=== PATIENT | male | born 1965 | race Caucasian/White ===

== ENCOUNTER 2022-04-15 01:16 | Inpatient (IN) ==
[2022-04-15 10:46] LABS: Basophils % 0.4 %; Eosinophils # 0.2 K/mcL (0.0-0.6); Eosinophils % 2.2 %; Hematocrit 38.4 % (37.5-50.1); Hemoglobin 12.8 g/dL (12.9-16.9); Immature Granulocytes % 0.5 % (0-4); Lymphocytes # 1.9 K/mcL (0.6-4.6); Lymphocytes % 21.8 %; Mean Corpuscular HGB Conc 33.3 g/dL (31.6-35.5); Mean Corpuscular Hemoglobin 31.7 pg (28.0-33.3); Mean Platelet Volume 9.6 fL (9.4-12.4); Monocytes # 1.1 K/mcL (0.0-1.3); Monocytes % 12.9 %; Neutrophils # 5.3 K/mcL (1.6-8.9); Platelet Count 137 K/mcL (140-400); Red Blood Count 4.04 M/mcL (4.19-5.50); Red Cell Distribution Width 13.9 % (11.5-14.5); Segmented Neutrophils % 62.2 %; White Blood Count 8.5 K/mcL (4.3-11.1)
[2022-04-15] MEDS ORDERED: Dextrose Gel 15 GM/37.5 ML TUBE PO PRN ×2 (11:03)
[2022-04-15] MEDS ORDERED: *HR* Dextrose 50 % in Water (Syg) 50 ML SYRINGE IVP PRN (11:03)
[2022-04-15] MEDS ORDERED: D5% in Water 1,000 ML IVC PRN (11:03)
[2022-04-15] MEDS ORDERED: Acetaminophen 325 MG TABLET PO PRN (11:05)
[2022-04-15 11:06] LABS: Albumin 3.4 g/dL (3.5-5.7); Bilirubin,Total 0.4 mg/dL (0.3-1.0); Calcium 7.3 mg/dL (8.6-10.3)
[2022-04-15 11:28] LABS: Albumin/Globulin Ratio 1.2 (1.1-2.2); Globulin 2.8 g/dL (2.4-3.5); Total Protein 6.2 g/dL (6.4-8.9)
[2022-04-15 11:52] LABS: INR 1.1; Prothrombin Time 12.1 Seconds (9.4-12.1)
[2022-04-15 11:54] LABS: Activated Partial Thrombo Time 30.7 Seconds (26.0-36.0)
[2022-04-15 11:57] LABS: Albumin 3.4 g/dL (3.5-5.7); Albumin/Globulin Ratio 1.3 (1.1-2.2); Bilirubin,Direct 0.1 mg/dL (0.0-0.2); Bilirubin,Indirect 0.3 mg/dL (0.0-1.0); Bilirubin,Total 0.4 mg/dL (0.3-1.0); Globulin 2.6 g/dL (2.4-3.5)
[2022-04-15] MEDS ORDERED: Ampicillin 2 MG in 0.9 % Sodium Chloride Mini Bag 100 ML IVPB SCH ×2 (12:00→14:00)
[2022-04-15] MEDS: Insulin LISPRO 300 UNITS/3 ML VIAL SUBQ SCH ×3 (12:10→20:47)
[2022-04-15] MEDS: cefTRIAXone 2,000 MG in 0.9 % Sodium Chloride 20 ML IVP SCH ×2 (12:11→20:39)
[2022-04-15] MEDS ORDERED: Ampicillin 2,000 MG in 0.9 % Sodium Chloride Mini Bag 100 ML IVPB SCH (14:00)
[2022-04-15] MEDS ORDERED: metOLazone 5 MG TABLET PO PRN (17:53)
[2022-04-15] MEDS ORDERED: Lactulose Oral Soln 20 GM/30 ML UDC PO PRN (18:05)
[2022-04-15] MEDS: Torsemide 20 MG TABLET PO SCH (18:17)
[2022-04-15] MEDS: Ampicillin 2,000 MG in 0.9 % Sodium Chloride Mini Bag 100 ML IVPB SCH (20:30)
[2022-04-15] MEDS: FLUoxetine 20 MG CAPSULE PO SCH (20:42)
[2022-04-15] MEDS: *HR* Heparin 5,000 UNIT/ML VIAL SQ SCH (20:47)
[2022-04-16 02:19] LABS: Hepatitis B Surface Antibody 151.19 mIU/mL
[2022-04-16 02:30] LABS: Hepatitis B Surface Antigen Nonreactive (Nonreactive)
[2022-04-16 03:09] LABS: Bilirubin,Urine Negative (Negative); Blood,Urine Trace (Negative); Clarity,Urine Clear (Clear); Color,Urine Yellow (Yellow); Glucose,Urine (UA) 300 mg/dL (Normal); Ketones,Urine Negative (Negative); Leukocyte Esterase,Urine Moderate (Negative); Mucus,Urine Few per lpf (None-Few); Nitrite,Urine Negative (Negative); Protein,Urine >=300 mg/dL (Neg-Trace); RBC,Urine 0-3 per hpf (0-3); Specific Gravity,Urine 1.024 (1.010-1.025); Squamous Epithelial Cell,Urine Moderate per hpf (None-Few); Urobilinogen,Urine Normal (Normal); WBC,Urine 30-50 per hpf (0-3)
[2022-04-16 04:22] LABS: Basophils % 0.5 %; Eosinophils # 0.3 K/mcL (0.0-0.6); Eosinophils % 3.7 %; Hematocrit 36.7 % (37.5-50.1); Hemoglobin 12.4 g/dL (12.9-16.9); Immature Granulocytes % 0.3 % (0-4); Lymphocytes % 26.5 %; Mean Corpuscular HGB Conc 33.8 g/dL (31.6-35.5); Mean Corpuscular Hemoglobin 31.8 pg (28.0-33.3); Mean Corpuscular Volume 94.1 fL (83.0-100.0); Mean Platelet Volume 9.8 fL (9.4-12.4); Monocytes # 0.9 K/mcL (0.0-1.3); Monocytes % 11.8 %; Neutrophils # 4.2 K/mcL (1.6-8.9); Platelet Count 125 K/mcL (140-400); Red Cell Distribution Width 13.6 % (11.5-14.5); Segmented Neutrophils % 57.2 %; White Blood Count 7.4 K/mcL (4.3-11.1)
[2022-04-16 04:31] LABS: Calcium 7.1 mg/dL (8.6-10.3)
[2022-04-16 04:59] LABS: Estimated Average Glucose 206 mg/dl; Hemoglobin A1C 8.8 %
[2022-04-16] MEDS: cefTRIAXone 2,000 MG in 0.9 % Sodium Chloride 20 ML IVP SCH ×2 (05:43→22:15)
[2022-04-16] MEDS: *HR* Heparin 5,000 UNIT/ML VIAL SQ SCH ×3 (05:45→22:16)
[2022-04-16] MEDS: Ampicillin 2,000 MG in 0.9 % Sodium Chloride Mini Bag 100 ML IVPB SCH ×2 (05:45→22:15)
[2022-04-16] MEDS: Aspirin 325 MG TABLET PO SCH (08:45)
[2022-04-16] MEDS: Torsemide 20 MG TABLET PO SCH (08:45)
[2022-04-16] MEDS: carvediloL 6.25 MG TABLET PO SCH ×2 (08:46→18:54)
[2022-04-16] MEDS: FLUoxetine 20 MG CAPSULE PO SCH ×3 (08:46→22:16)
[2022-04-16] MEDS: Cholecalciferol (D-3) 1,000 UNIT (25MCG) TABLET PO SCH (08:46)
[2022-04-16] MEDS: amLODIPine 5 MG TABLET PO SCH (08:46)
[2022-04-16] MEDS: Vitamin B Complex/Vit C/Vit E 1 EACH TABLET PO SCH (08:46)
[2022-04-16] MEDS: Insulin LISPRO 300 UNITS/3 ML VIAL SUBQ SCH ×4 (08:47→22:17)
[2022-04-16] MEDS: Isosorbide MONOnitrate (24 HR) 30 MG TAB.ER.24H PO SCH (08:47)
[2022-04-16] MEDS ORDERED: (Omega-3/Dha/Epa/Fish Oil [Fish Oil 1,000 Mg Softgel] PO SCH (09:00)
[2022-04-16 10:44] LABS: % Iron Saturation 17 % (20-55); Iron 43 mcg/dL (65-175); Transferrin 182 mg/dL (203-362)
[2022-04-16 11:03] LABS: Ferritin 119 ng/mL (20-250)
[2022-04-16] MEDS ORDERED: Ethyl Chloride Spray Bottle (104 SPRAY/BOTTLE) TP PRN (11:19)
[2022-04-16] MEDS ORDERED: *HR* Heparin 10,000 UNIT/10 ML VIAL IV PRN (11:19)
[2022-04-16] MEDS ORDERED: 0.9 % Sodium Chloride 250 ML IVC PRN (11:19)
[2022-04-16] MEDS ORDERED: 0.9 % Sodium Chloride 2,000 ML PRIME SCH (11:30)
[2022-04-16 11:42] LABS: Folate > 22.3 ng/mL (3.0-16.0); Vitamin B12 634 pg/mL (250-1100); Vitamin D 25 Hydroxy 26 ng/mL (30-80)
[2022-04-16] MEDS ORDERED: *HR* OxyCODONE Immed Rel 5 MG TABLET PO ONE (13:38)
[2022-04-16 15:17] LABS: Glucose,CSF 154 mg/dL (40-70); Total Protein,CSF 172 mg/dL (15-45)
[2022-04-16 15:21] LABS: Appearance,CSF Bloody (Clear)
[2022-04-16 15:36] LABS: Basophils,CSF 0 %
[2022-04-16] MEDS ORDERED: Vancomycin 1,250 MG/262.5 ML IV.SOLN IVPB ONE (17:00)
[2022-04-17] MEDS: *HR* Heparin 5,000 UNIT/ML VIAL SQ SCH ×3 (06:09→19:59)
[2022-04-17] MEDS: cefTRIAXone 2,000 MG in 0.9 % Sodium Chloride 20 ML IVP SCH ×2 (06:10→18:10)
[2022-04-17] MEDS: Ampicillin 2,000 MG in 0.9 % Sodium Chloride Mini Bag 100 ML IVPB SCH ×2 (06:10→18:12)
[2022-04-17 06:58] LABS: Basophils % 0.5 %; Eosinophils # 0.2 K/mcL (0.0-0.6); Eosinophils % 3.3 %; Hematocrit 36.1 % (37.5-50.1); Hemoglobin 12.1 g/dL (12.9-16.9); Immature Granulocytes % 0.4 % (0-4); Lymphocytes # 1.9 K/mcL (0.6-4.6); Lymphocytes % 26.1 %; Mean Corpuscular HGB Conc 33.5 g/dL (31.6-35.5); Mean Corpuscular Hemoglobin 31.8 pg (28.0-33.3); Mean Corpuscular Volume 94.8 fL (83.0-100.0); Mean Platelet Volume 9.6 fL (9.4-12.4); Monocytes # 0.9 K/mcL (0.0-1.3); Monocytes % 12.5 %; Neutrophils # 4.2 K/mcL (1.6-8.9); Platelet Count 136 K/mcL (140-400); Red Blood Count 3.81 M/mcL (4.19-5.50); Red Cell Distribution Width 13.7 % (11.5-14.5); Segmented Neutrophils % 57.2 %; White Blood Count 7.4 K/mcL (4.3-11.1)
[2022-04-17 07:15] LABS: Calcium 7.6 mg/dL (8.6-10.3); Magnesium 2.1 mg/dL (1.6-2.6); Potassium 4.1 mEq/L (3.5-5.1)
[2022-04-17] MEDS: Cholecalciferol (D-3) 1,000 UNIT (25MCG) TABLET PO SCH (08:34)
[2022-04-17] MEDS: carvediloL 6.25 MG TABLET PO SCH ×2 (08:34→18:12)
[2022-04-17] MEDS: Torsemide 20 MG TABLET PO SCH (08:35)
[2022-04-17] MEDS: Aspirin 325 MG TABLET PO SCH (08:35)
[2022-04-17] MEDS: FLUoxetine 20 MG CAPSULE PO SCH ×3 (08:35→19:59)
[2022-04-17] MEDS: amLODIPine 5 MG TABLET PO SCH (08:36)
[2022-04-17] MEDS: Vitamin B Complex/Vit C/Vit E 1 EACH TABLET PO SCH (08:36)
[2022-04-17] MEDS: Isosorbide MONOnitrate (24 HR) 30 MG TAB.ER.24H PO SCH (08:38)
[2022-04-17] MEDS: Insulin LISPRO 300 UNITS/3 ML VIAL SUBQ SCH ×4 (08:38→20:04)
[2022-04-17 10:51] LABS: Creatinine,Urine 93 mg/dL; Microalbumin,Urine > 1350 mg/L
[2022-04-17] MEDS ORDERED: Insulin LISPRO 300 UNITS/3 ML VIAL SUBQ SCH (12:00)
[2022-04-18 04:04] VITALS: O2SAT 93
[2022-04-18] MEDS: cefTRIAXone 2,000 MG in 0.9 % Sodium Chloride 20 ML IVP SCH (05:30)
[2022-04-18] MEDS: Ampicillin 2,000 MG in 0.9 % Sodium Chloride Mini Bag 100 ML IVPB SCH (05:30)
[2022-04-18] MEDS: *HR* Heparin 5,000 UNIT/ML VIAL SQ SCH (06:11)
[2022-04-18 06:44] VITALS: PULSE 74
[2022-04-18 08:19] LABS: Calcium 7.9 mg/dL (8.6-10.3); Potassium 4.3 mEq/L (3.5-5.1)
[2022-04-18] MEDS: amLODIPine 5 MG TABLET PO SCH (08:31)
[2022-04-18] MEDS: Isosorbide MONOnitrate (24 HR) 30 MG TAB.ER.24H PO SCH (08:33)
[2022-04-18] MEDS: FLUoxetine 20 MG CAPSULE PO SCH (08:33)
[2022-04-18] MEDS: carvediloL 6.25 MG TABLET PO SCH (08:33)
[2022-04-18] MEDS: Cholecalciferol (D-3) 1,000 UNIT (25MCG) TABLET PO SCH (08:33)
[2022-04-18] MEDS: Vitamin B Complex/Vit C/Vit E 1 EACH TABLET PO SCH (08:33)
[2022-04-18] MEDS: Torsemide 20 MG TABLET PO SCH (08:34)
[2022-04-18] MEDS: Insulin LISPRO 300 UNITS/3 ML VIAL SUBQ SCH (08:41)
[2022-04-18] MEDS ORDERED: Aspirin Enteric Coated 81 MG Tablet PO SCH (09:00)
[2022-04-18] MEDS ORDERED: *HR* Heparin 10,000 UNIT/10 ML VIAL IV PRN (09:16)
[2022-04-18] MEDS ORDERED: 0.9 % Sodium Chloride 250 ML IVC PRN (09:16)
[2022-04-18 14:17] VITALS: BP 125/73; TEMP 97.3
[2022-04-19] MEDS ORDERED: Ergocalciferol (VIT D2) 50,000 UNIT (1.25MG) CAP PO ONE (10:51)
[2022-04-19 12:12] LABS: Herpes Simplex 1 Subtype PCR NOT DETECTED; Herpes Simplex Source CSF
[2022-04-19 14:57] LABS: Herpes Simplex 2 Subtype PCR NOT DETECTED
== END 2022-04-18 14:49 | disposition home or self-care (01) | DRG 871 ==
LOC: 3NENU → SUATTDRO 11:29
PROVIDERS: ADMIT Internal Medicine; ATTEND Internal Medicine